=== PATIENT | female | born 1945 | race Caucasian/White ===

== ENCOUNTER 2023-05-10 09:45 | Outpatient (OUT) | payer MEDICARE, SELFPAY | END 2023-05-10 09:46 | disposition home or self-care (01) | LOC: SLEEP 09:45 | PROVIDERS: PCP Nurse Practitioner; Visit Provider Nurse Practitioner | DX: G47.33 Obstructive sleep apnea (adult) (pediatric) (principal) | CPT/HCPCS: 95806 ==